=== PATIENT | male | born 1955 | race Caucasian/White ===

== ENCOUNTER 2016-12-19 10:06 | Outpatient (CLI) | payer MEDICARE, MEDICAID | END 2016-12-19 10:07 | disposition critical access hospital (66) | DX: R41.82 Altered mental status, unspecified (principal) | CPT/HCPCS: A0425; A0429 ==

== ENCOUNTER 2016-12-19 10:24 | Inpatient (IN) | payer MEDICARE, MEDICAID ==
[2016-12-19] MEDS ORDERED: SODIUM CHLORIDE 0.9% 1,000 ML IV ONE ×2 (11:07→12:34)
[2016-12-19] MEDS ORDERED: levETIRAcetam 250 MG TABLET PO STA (12:34)
[2016-12-19] MEDS ORDERED: DIVALPROEX DR 125 MG TABLET PO STA (12:35)
[2016-12-19] MEDS ORDERED: LORazepam 2 MG/ML SYRINGE ONE (13:05)
[2016-12-19] MEDS ORDERED: LORazepam 2 MG/ML SYRINGE IVP STA (13:07)
[2016-12-19] MEDS ORDERED: ONDANSETRON 4 MG/2 ML VIAL IVP PRN (13:24)
[2016-12-19] MEDS ORDERED: LORazepam 2 MG/ML SYRINGE IVP PRN (13:24)
[2016-12-19] MEDS: SODIUM CHLORIDE FLUSH 0.9% 10 ML SYRINGE IVP SCH ×2 (14:28→21:41)
[2016-12-19] MEDS: SODIUM CHLORIDE 0.9% 1,000 ML IV SCH ×2 (14:40→22:58)
[2016-12-19] MEDS: diphenhydrAMINE INJ 50 MG/ML VIAL IVP SCH ×2 (15:02→22:57)
[2016-12-19] MEDS: levETIRAcetam INJ 500 MG in SODIUM CHLORIDE 0.9% 100ML 100 ML IV SCH ×2 (15:03→21:40)
[2016-12-19] MEDS: PANTOPRAZOLE 40 MG VIAL IVP SCH (15:03)
[2016-12-19] MEDS ORDERED: SODIUM CHLORIDE 0.9% 500 ML IV PRN (15:33)
[2016-12-19] MEDS: SODIUM CHLORIDE 0.9% 500 ML IV ONE (15:50)
[2016-12-19] MEDS: VALPROATE INJ 250 MG in SODIUM CHLORIDE 0.9% 100ML 100 ML IV SCH ×2 (15:50→22:57)
[2016-12-19] MEDS: PIPERACILLIN/TAZOBACTAM 3.375 GM in SODIUM CHLORIDE 0.9% MINIBAG 100 ML IV SCH ×2 (15:50→21:40)
[2016-12-20] MEDS: PIPERACILLIN/TAZOBACTAM 3.375 GM in SODIUM CHLORIDE 0.9% MINIBAG 100 ML IV SCH ×4 (04:01→22:00)
[2016-12-20] MEDS: SODIUM CHLORIDE FLUSH 0.9% 10 ML SYRINGE IVP SCH ×3 (05:09→21:13)
[2016-12-20] MEDS: levETIRAcetam INJ 500 MG in SODIUM CHLORIDE 0.9% 100ML 100 ML IV SCH ×3 (05:52→22:02)
[2016-12-20] MEDS: PANTOPRAZOLE 40 MG VIAL IVP SCH (06:15)
[2016-12-20] MEDS: diphenhydrAMINE INJ 50 MG/ML VIAL IVP SCH ×2 (08:59→21:11)
[2016-12-20] MEDS: SODIUM CHLORIDE FLUSH 0.9% 10 ML SYRINGE IVP PRN ×2 (08:59→13:22)
[2016-12-20] MEDS: ENOXAPARIN 40 MG/0.4 ML SYRINGE SUBQ SCH (08:59)
[2016-12-20] MEDS: VALPROATE INJ 250 MG in SODIUM CHLORIDE 0.9% 100ML 100 ML IV SCH ×2 (10:04→22:37)
[2016-12-20] MEDS: SODIUM CHLORIDE 0.9% 1,000 ML IV SCH (13:27)
[2016-12-20] MEDS ORDERED: SODIUM CHLORIDE 0.9% 500 ML IV ONE (15:42)
[2016-12-20] MEDS: SODIUM CHLORIDE 0.9% 500 ML IV ONE (15:50)
[2016-12-21] MEDS: PIPERACILLIN/TAZOBACTAM 3.375 GM in SODIUM CHLORIDE 0.9% MINIBAG 100 ML IV SCH ×4 (04:18→22:28)
[2016-12-21] MEDS: SODIUM CHLORIDE FLUSH 0.9% 10 ML SYRINGE IVP SCH ×3 (06:01→22:28)
[2016-12-21] MEDS: levETIRAcetam INJ 500 MG in SODIUM CHLORIDE 0.9% 100ML 100 ML IV SCH (06:01)
[2016-12-21] MEDS: PANTOPRAZOLE 40 MG VIAL IVP SCH (06:06)
[2016-12-21] MEDS: diphenhydrAMINE INJ 50 MG/ML VIAL IVP SCH ×2 (07:44→22:28)
[2016-12-21] MEDS: ENOXAPARIN 40 MG/0.4 ML SYRINGE SUBQ SCH (07:44)
[2016-12-21] MEDS ORDERED: OLANZapine ODT 5 MG TABLET TL ONE (07:57)
[2016-12-21] MEDS: PROPRANOLOL 10 MG TABLET PO SCH (08:45)
[2016-12-21] MEDS: BENZTROPINE 2 MG TABLET PO SCH ×2 (08:45→22:27)
[2016-12-21] MEDS: clonazePAM 0.5 MG TABLET PO SCH ×3 (08:46→22:27)
[2016-12-21] MEDS: levETIRAcetam 250 MG TABLET PO SCH ×3 (09:00→22:27)
[2016-12-21] MEDS: DIVALPROEX DR 250 MG TABLET PO SCH ×2 (09:02→22:28)
[2016-12-21] MEDS: HYDROcod/ACETAM 5/325 MG TABLET PO PRN (11:03)
[2016-12-21] MEDS: OLANZapine ODT 5 MG TABLET TL PRN (20:28)
[2016-12-21] MEDS ORDERED: SODIUM CHLORIDE 0.9% 100ML 100 ML IV ONE (22:10)
[2016-12-21] MEDS: MIRTAZAPINE 15 MG TABLET PO SCH (22:27)
[2016-12-21] MEDS: FLUoxetine 10 MG CAPSULE PO SCH (22:28)
[2016-12-22] MEDS: PIPERACILLIN/TAZOBACTAM 3.375 GM in SODIUM CHLORIDE 0.9% MINIBAG 100 ML IV SCH ×4 (04:10→22:01)
[2016-12-22] MEDS: SODIUM CHLORIDE FLUSH 0.9% 10 ML SYRINGE IVP PRN ×2 (06:06→10:35)
[2016-12-22] MEDS: clonazePAM 0.5 MG TABLET PO SCH ×3 (06:06→20:28)
[2016-12-22] MEDS: levETIRAcetam 250 MG TABLET PO SCH ×3 (06:06→20:28)
[2016-12-22] MEDS: SODIUM CHLORIDE FLUSH 0.9% 10 ML SYRINGE IVP SCH ×3 (06:06→22:03)
[2016-12-22] MEDS: PANTOPRAZOLE 40 MG VIAL IVP SCH (06:06)
[2016-12-22] MEDS: DIVALPROEX DR 250 MG TABLET PO SCH ×2 (11:19→20:28)
[2016-12-22] MEDS: ENOXAPARIN 40 MG/0.4 ML SYRINGE SUBQ SCH (11:19)
[2016-12-22] MEDS: POLYETHYLENE GLYCOL 3350 17 GM PACKET PO SCH (11:20)
[2016-12-22] MEDS: BENZTROPINE 2 MG TABLET PO SCH ×2 (11:32→20:28)
[2016-12-22] MEDS: PROPRANOLOL 10 MG TABLET PO SCH ×2 (11:37→14:43)
[2016-12-22] MEDS: HYDROcod/ACETAM 5/325 MG TABLET PO PRN (14:43)
[2016-12-22] MEDS: OLANZapine ODT 5 MG TABLET TL PRN (18:51)
[2016-12-22] MEDS: FLUoxetine 10 MG CAPSULE PO SCH (20:28)
[2016-12-22] MEDS: MIRTAZAPINE 15 MG TABLET PO SCH (20:28)
[2016-12-22] MEDS ORDERED: OLANZapine ODT 5 MG TABLET TL SCH (22:00)
[2016-12-23] MEDS: HYDROcod/ACETAM 5/325 MG TABLET PO PRN ×2 (00:10→17:44)
[2016-12-23] MEDS: OLANZapine ODT 5 MG TABLET TL PRN (01:22)
[2016-12-23] MEDS: PIPERACILLIN/TAZOBACTAM 3.375 GM in SODIUM CHLORIDE 0.9% MINIBAG 100 ML IV SCH ×5 (04:15→23:19)
[2016-12-23] MEDS: SODIUM CHLORIDE FLUSH 0.9% 10 ML SYRINGE IVP PRN ×3 (04:15→23:13)
[2016-12-23] MEDS: levETIRAcetam 250 MG TABLET PO SCH ×4 (06:39→20:14)
[2016-12-23] MEDS: SODIUM CHLORIDE FLUSH 0.9% 10 ML SYRINGE IVP SCH ×3 (06:39→15:34)
[2016-12-23] MEDS: clonazePAM 0.5 MG TABLET PO SCH ×4 (06:39→20:13)
[2016-12-23] MEDS: PANTOPRAZOLE 40 MG VIAL IVP SCH (06:39)
[2016-12-23] MEDS: ENOXAPARIN 40 MG/0.4 ML SYRINGE SUBQ SCH ×2 (12:33→12:37)
[2016-12-23] MEDS: DIVALPROEX DR 250 MG TABLET PO SCH ×2 (12:33→20:15)
[2016-12-23] MEDS: POLYETHYLENE GLYCOL 3350 17 GM PACKET PO SCH (12:33)
[2016-12-23] MEDS: BENZTROPINE 2 MG TABLET PO SCH ×2 (12:33→20:13)
[2016-12-23] MEDS ORDERED: OLANZapine ODT 5 MG TABLET TL ONE (17:41)
[2016-12-23] MEDS: OLANZapine ODT 5 MG TABLET TL SCH (17:45)
[2016-12-23] MEDS: FLUoxetine 10 MG CAPSULE PO SCH (20:14)
[2016-12-23] MEDS: MIRTAZAPINE 15 MG TABLET PO SCH (20:15)
[2016-12-24] MEDS: clonazePAM 0.5 MG TABLET PO SCH ×3 (06:39→21:14)
[2016-12-24] MEDS: PANTOPRAZOLE 40 MG VIAL IVP SCH (06:40)
[2016-12-24] MEDS: SODIUM CHLORIDE FLUSH 0.9% 10 ML SYRINGE IVP SCH ×3 (06:40→21:16)
[2016-12-24] MEDS: levETIRAcetam 250 MG TABLET PO SCH ×3 (06:40→21:15)
[2016-12-24] MEDS: AMOX/CLAV 875 MG/125 MG TABLET PO SCH ×3 (07:58→21:14)
[2016-12-24] MEDS: BENZTROPINE 2 MG TABLET PO SCH ×2 (07:58→18:19)
[2016-12-24] MEDS: PROPRANOLOL 10 MG TABLET PO SCH (07:58)
[2016-12-24] MEDS: DIVALPROEX DR 250 MG TABLET PO SCH ×2 (07:58→21:14)
[2016-12-24] MEDS: OLANZapine ODT 5 MG TABLET TL SCH ×4 (07:59→17:41)
[2016-12-24] MEDS: ENOXAPARIN 40 MG/0.4 ML SYRINGE SUBQ SCH (07:59)
[2016-12-24] MEDS: POLYETHYLENE GLYCOL 3350 17 GM PACKET PO SCH (07:59)
[2016-12-24] MEDS ORDERED: BENZTROPINE 2 MG TABLET PO SCH (17:40)
[2016-12-24] MEDS: LORazepam 0.5 MG TABLET PO PRN (19:54)
[2016-12-24] MEDS: MIRTAZAPINE 15 MG TABLET PO SCH (21:15)
[2016-12-24] MEDS: FLUoxetine 10 MG CAPSULE PO SCH (21:25)
[2016-12-25] MEDS: PANTOPRAZOLE 40 MG TABLET PO SCH ×2 (06:42→09:00)
[2016-12-25] MEDS: levETIRAcetam 250 MG TABLET PO SCH ×4 (06:42→21:30)
[2016-12-25] MEDS: SODIUM CHLORIDE FLUSH 0.9% 10 ML SYRINGE IVP SCH ×3 (06:42→21:32)
[2016-12-25] MEDS: clonazePAM 0.5 MG TABLET PO SCH ×4 (06:42→21:31)
[2016-12-25] MEDS: AMOX/CLAV 875 MG/125 MG TABLET PO SCH ×2 (09:00→21:31)
[2016-12-25] MEDS: PROPRANOLOL 10 MG TABLET PO SCH (09:00)
[2016-12-25] MEDS: DIVALPROEX DR 250 MG TABLET PO SCH ×2 (09:00→21:31)
[2016-12-25] MEDS: BENZTROPINE 2 MG TABLET PO SCH ×2 (09:01→21:32)
[2016-12-25] MEDS: OLANZapine ODT 5 MG TABLET TL SCH ×2 (09:01→21:31)
[2016-12-25] MEDS: ENOXAPARIN 40 MG/0.4 ML SYRINGE SUBQ SCH (09:01)
[2016-12-25] MEDS: POLYETHYLENE GLYCOL 3350 17 GM PACKET PO SCH (09:02)
[2016-12-25] MEDS: FLUoxetine 10 MG CAPSULE PO SCH (21:31)
[2016-12-25] MEDS: MIRTAZAPINE 15 MG TABLET PO SCH (21:31)
[2016-12-25] MEDS: LORazepam 0.5 MG TABLET PO PRN (22:00)
[2016-12-26] MEDS: SODIUM CHLORIDE FLUSH 0.9% 10 ML SYRINGE IVP SCH ×3 (07:07→21:21)
[2016-12-26] MEDS: POLYETHYLENE GLYCOL 3350 17 GM PACKET PO SCH (10:40)
[2016-12-26] MEDS: PROPRANOLOL 10 MG TABLET PO SCH (10:42)
[2016-12-26] MEDS: ACETAMINOPHEN 325 MG TABLET PO PRN ×2 (10:42→21:20)
[2016-12-26] MEDS: AMOX/CLAV 875 MG/125 MG TABLET PO SCH ×2 (10:42→21:20)
[2016-12-26] MEDS: PANTOPRAZOLE 40 MG TABLET PO SCH (10:42)
[2016-12-26] MEDS: levETIRAcetam 250 MG TABLET PO SCH ×3 (10:43→21:20)
[2016-12-26] MEDS: OLANZapine ODT 5 MG TABLET TL SCH ×2 (10:43→21:21)
[2016-12-26] MEDS: clonazePAM 0.5 MG TABLET PO SCH ×2 (10:43→14:25)
[2016-12-26] MEDS: ENOXAPARIN 40 MG/0.4 ML SYRINGE SUBQ SCH (10:44)
[2016-12-26] MEDS: BENZTROPINE 2 MG TABLET PO SCH ×2 (10:44→21:19)
[2016-12-26] MEDS: DIVALPROEX DR 250 MG TABLET PO SCH ×2 (10:44→21:20)
[2016-12-26] MEDS ORDERED: LORazepam 0.5 MG TABLET PO PRN (19:17)
[2016-12-26] MEDS: FLUoxetine 10 MG CAPSULE PO SCH (21:20)
[2016-12-26] MEDS: MIRTAZAPINE 15 MG TABLET PO SCH (21:20)
[2016-12-27] MEDS: SODIUM CHLORIDE FLUSH 0.9% 10 ML SYRINGE IVP SCH ×3 (06:49→21:18)
[2016-12-27] MEDS: PANTOPRAZOLE 40 MG TABLET PO SCH (08:01)
[2016-12-27] MEDS: ENOXAPARIN 40 MG/0.4 ML SYRINGE SUBQ SCH (08:13)
[2016-12-27] MEDS: POLYETHYLENE GLYCOL 3350 17 GM PACKET PO SCH (08:13)
[2016-12-27] MEDS: DIVALPROEX DR 250 MG TABLET PO SCH ×2 (08:14→21:17)
[2016-12-27] MEDS: AMOX/CLAV 875 MG/125 MG TABLET PO SCH ×2 (08:14→21:17)
[2016-12-27] MEDS: OLANZapine ODT 5 MG TABLET TL SCH ×2 (08:14→21:17)
[2016-12-27] MEDS: levETIRAcetam 250 MG TABLET PO SCH ×2 (08:14→21:17)
[2016-12-27] MEDS: BENZTROPINE 2 MG TABLET PO SCH ×2 (08:15→21:17)
[2016-12-27] MEDS: PROPRANOLOL 10 MG TABLET PO SCH (08:15)
[2016-12-27] MEDS: MIRTAZAPINE 15 MG TABLET PO SCH (21:17)
[2016-12-27] MEDS: FLUoxetine 10 MG CAPSULE PO SCH (21:17)
[2016-12-27] MEDS: ACETAMINOPHEN 325 MG TABLET PO PRN (23:38)
[2016-12-28] MEDS: SODIUM CHLORIDE FLUSH 0.9% 10 ML SYRINGE IVP SCH (05:36)
[2016-12-28] MEDS: AMOX/CLAV 875 MG/125 MG TABLET PO SCH (08:47)
[2016-12-28] MEDS: levETIRAcetam 250 MG TABLET PO SCH (08:47)
[2016-12-28] MEDS: DIVALPROEX DR 250 MG TABLET PO SCH (08:47)
[2016-12-28] MEDS: PANTOPRAZOLE 40 MG TABLET PO SCH (08:47)
[2016-12-28] MEDS: PROPRANOLOL 10 MG TABLET PO SCH (08:48)
[2016-12-28] MEDS: POLYETHYLENE GLYCOL 3350 17 GM PACKET PO SCH (08:48)
[2016-12-28] MEDS: OLANZapine ODT 5 MG TABLET TL SCH (08:48)
[2016-12-28] MEDS: BENZTROPINE 2 MG TABLET PO SCH (08:48)
[2016-12-28] MEDS: ENOXAPARIN 40 MG/0.4 ML SYRINGE SUBQ SCH (08:49)
== END 2016-12-28 09:50 | disposition home or self-care (01) | DRG 100 ==
DX: G40.409 Other generalized epilepsy and epileptic syndromes, not intractable, without status epilepticus (principal); G40.909 Epilepsy, unspecified, not intractable, without status epilepticus; R41.82 Altered mental status, unspecified; J69.0 Pneumonitis due to inhalation of food and vomit; M25.552 Pain in left hip; R10.2 Pelvic and perineal pain; W07.XXXA Fall from chair, initial encounter; Y92.239 Unspecified place in hospital as the place of occurrence of the external cause; R55 Syncope and collapse; G20 Parkinson's disease; F31.9 Bipolar disorder, unspecified; F20.9 Schizophrenia, unspecified; I10 Essential (primary) hypertension; E78.00 Pure hypercholesterolemia, unspecified; J44.9 Chronic obstructive pulmonary disease, unspecified; G47.30 Sleep apnea, unspecified; F41.9 Anxiety disorder, unspecified; G24.4 Idiopathic orofacial dystonia; R13.10 Dysphagia, unspecified; Z78.1 Physical restraint status; Z91.81 History of falling

== ENCOUNTER 2016-12-29 09:17 | Outpatient (CLI) | payer MEDICARE, MEDICAID | END 2016-12-29 09:18 | disposition critical access hospital (66) | DX: F91.8 Other conduct disorders (principal) | CPT/HCPCS: A0425; A0429 ==

== ENCOUNTER 2016-12-29 09:36 | Emergency (ER) | payer MEDICARE, MEDICAID ==
[2016-12-29] MEDS ORDERED: OLANZapine ODT 5 MG TABLET TL ONE ×2 (12:14→12:24)
[2016-12-29] MEDS ORDERED: clonazePAM 0.5 MG TABLET PO STA ×2 (15:27→18:42)
[2016-12-29] MEDS ORDERED: clonazePAM 0.5 MG TABLET PO ONE ×2 (15:30→19:36)
[2016-12-29] MEDS ORDERED: levETIRAcetam 250 MG TABLET PO STA (18:42)
[2016-12-29] MEDS ORDERED: FLUoxetine 10 MG CAPSULE PO STA (18:43)
[2016-12-29] MEDS ORDERED: FAMOTIDINE 20 MG TABLET PO STA (18:44)
[2016-12-29] MEDS ORDERED: DIVALPROEX DR 125 MG TABLET PO STA (18:44)
[2016-12-29] MEDS ORDERED: DIVALPROEX DR 250 MG TABLET PO STA (19:01)
[2016-12-29] MEDS ORDERED: FAMOTIDINE 20 MG TABLET ONE (19:36)
[2016-12-29] MEDS ORDERED: levETIRAcetam 250 MG TABLET ONE (19:37)
== END 2016-12-29 21:35 | disposition home or self-care (01) ==
DX: F91.9 Conduct disorder, unspecified (principal); G40.909 Epilepsy, unspecified, not intractable, without status epilepticus; F20.9 Schizophrenia, unspecified; I10 Essential (primary) hypertension; E78.00 Pure hypercholesterolemia, unspecified; J44.9 Chronic obstructive pulmonary disease, unspecified; G47.30 Sleep apnea, unspecified
CPT/HCPCS: 36415; 80053; 80164; 80306; 81003; 83690; 83735; 84443; 85025; 99283; 99284; A9270; G0480

== ENCOUNTER 2017-01-05 15:04 | Outpatient (CLI) | payer MEDICAID, MEDICARE | END 2017-01-05 15:05 | disposition critical access hospital (66) | DX: R46.89 Other symptoms and signs involving appearance and behavior (principal) | CPT/HCPCS: A0425; A0429 ==

== ENCOUNTER 2017-01-05 15:24 | Emergency (ER) | payer MEDICARE, MEDICAID ==
[2017-01-05] MEDS ORDERED: BENZTROPINE 2 MG TABLET PO PRN (17:23)
[2017-01-05] MEDS ORDERED: clonazePAM 0.5 MG TABLET PO PRN (17:23)
[2017-01-05] MEDS ORDERED: QUEtiapine 25 MG TABLET PO STA (20:47)
[2017-01-05] MEDS ORDERED: levETIRAcetam 250 MG TABLET ONE (20:50)
[2017-01-05] MEDS: DIVALPROEX DR 125 MG TABLET PO SCH (21:26)
[2017-01-05] MEDS: MIRTAZAPINE 15 MG TABLET PO SCH (21:26)
[2017-01-05] MEDS: levETIRAcetam 250 MG TABLET PO SCH (21:26)
[2017-01-06] MEDS ORDERED: levETIRAcetam 250 MG TABLET ONE (08:40)
[2017-01-06] MEDS: DIVALPROEX DR 125 MG TABLET PO SCH ×2 (08:50→21:11)
[2017-01-06] MEDS: levETIRAcetam 250 MG TABLET PO SCH (08:50)
[2017-01-06] MEDS ORDERED: FLUoxetine 10 MG CAPSULE PO SCH (09:00)
[2017-01-06] MEDS ORDERED: clonazePAM 0.5 MG TABLET PO ONE (14:13)
[2017-01-06] MEDS: MIRTAZAPINE 15 MG TABLET PO SCH (21:11)
== END 2017-01-06 21:26 ==
DX: F20.9 Schizophrenia, unspecified (principal); F31.9 Bipolar disorder, unspecified; I10 Essential (primary) hypertension; G40.909 Epilepsy, unspecified, not intractable, without status epilepticus; G20 Parkinson's disease
CPT/HCPCS: 80053; 80164; 80306; 80307; 81003; 83690; 85025; 99284; A9270; G0480